=== PATIENT | female | born 1935 ===

== ENCOUNTER 2018-07-05 11:04 | Emergency (ER) | payer MEDICARE, MEDICAID ==
[2018-07-05 11:17] VITALS: TEMP 97.9
[2018-07-05] MEDS ORDERED: Sodium Chloride 0.9% 1,000 ML IV STA (11:21)
--- NOTE | 2018-07-05 11:25 | ED PDOC ---
Lower Extremity Pain/Injury Time Seen by Provider: 07/05/18 11:13 History Per: Patient Onset/Duration Of Symptoms: Other (2 weeks) Current Symptoms Are (Timing): Still Present Severity: Moderate Additional Complaint(s): Redness and swelling lower ext bilat x 2 weeks. Denies fevr. Denies chest pain or SOB Past Medical History Vital Signs: Last Vital Signs Temp 97.9 F 07/05/18 11:16 Pulse 87 07/05/18 11:16 Resp BP 142/69 07/05/18 11:16 Pulse Ox 97 07/05/18 11:16 - Medical History PMH: Asthma, HTN, Hypercholesterolemia, Hypothyroidism Denies: Chronic Kidney Disease - Family History Family History: States: Unknown Family Hx - Home Medications Home Medications: Ambulatory Orders Medication Instructions Recorded Clopidogrel [Plavix] 75 mg PO DAILY 03/23/16 Levothyroxine [Synthroid] 50 mcg PO DAILY 03/23/16 Gabapentin [Neurontin] 100 mg PO TID 10/05/17 Albuterol/Ipratropium [Duoneb 3 3 ml INH RQ6 PRN neb 10/08/17 mg/0.5 mg (3 ml) UD] amLODIPine [Norvasc] 10 mg PO DAILY tab 10/08/17 Apixaban [Eliquis] 5 mg PO BID #60 tab 10/16/17 Famotidine 20 mg PO DAILY 11/17/17 Furosemide 40 mg PO DAILY 11/17/17 Potassium Citrate [Potassium 10 meq PO DAILY 11/17/17 Citrate ER] Prednisone [Gabe] 5 mg PO DAILY 11/17/17 Sulfamethoxazole/Trimethoprim 1 tab PO BID #20 tab 07/05/18 [Bactrim DS 800 mg-160 mg] - Allergies Allergies/Adverse Reactions: Allergies Allergy/AdvReac Type Severity Reaction Status Date / Time Penicillins Allergy RASH Verified 07/05/18 11:35 Review of Systems ROS Statement: Except As Marked, All Systems Reviewed And Found Negative Constitutional: Negative for: Fever Musculoskeletal: Positive for: Leg Pain, Other (Redness and swelling lower ext bilat) Physical Exam - Reviewed Nursing Documentation Reviewed: Yes Vital Signs Reviewed: Yes - Physical Exam Appears: Positive for: Non-toxic, No Acute Distress Head Exam: Positive for: ATRAUMATIC, NORMAL INSPECTION, NORMOCEPHALIC Skin: Positive for: Normal Color, Warm, DRY Eye Exam: Positive for: EOMI, Normal appearance, PERRL ENT: Positive for: Normal ENT Inspection Neck: Positive for: Normal, Painless ROM Cardiovascular/Chest: Positive for: Regular Rate, Rhythm Respiratory: Positive for: CNT, Normal Breath Sounds Gastrointestinal/Abdominal: Positive for: Normal Exam, Soft Back: Positive for: Normal Inspection Extremity: Positive for: Swelling, Other (Erythema, circumferential to mid norris bilat). Negative for: Calf Tenderness Neurologic/Psych: Positive for: Alert, Oriented - Laboratory Results Result Diagrams: 07/05/18 11:35 07/05/18 11:35 - ECG O2 Sat by Pulse Oximetry: 97 Medical Decision Making Medical Decision Making: Erythema and warmth most likely due to cellullitis but will obtain duplex to r/o DVT Disposition - Clinical Impression Clinical Impression: Cellulitis - Patient ED Disposition Is Patient to be Admitted: No Counseled Patient/Family Regarding: Studies Performed, Diagnosis, Need For Followup, Rx Given - Disposition Referrals: [facility] [Outside] Disposition: Routine/Home Disposition Time: 14:10 Condition: FAIR Prescriptions: Sulfamethoxazole/Trimethoprim [Bactrim DS 800 mg-160 mg] 1 tab PO BID #20 tab Instructions: Cellulitis and Erysipelas (Skin Infections) Print Language: TAJIK
[2018-07-05 11:48] LABS: VENOUS BLOOD GAS PCO2 45 mmHg (40-60); VENOUS BLOOD GAS PO2 34 mm/Hg (30-55); VENOUS BLOOD PH 7.42 (7.32-7.43)
[2018-07-05 11:51] LABS: BASO % 0.7 % (0.0-2.0); EOS # 0.2 K/uL (0.0-0.7); EOS % 3.6 % (0.0-4.0); HEMOGLOBIN 11.7 g/dL (12.0-16.0); LYMPH # 1.8 K/uL (1.0-4.3); LYMPH % 28.4 % (20.0-40.0); MEAN CELL VOLUME 83.2 fl (81.0-99.0); MEAN CORPUSCULAR HEMOGLOBIN 27.4 pg (27.0-31.0); MEAN PLATELET VOLUME 7.5 fl (7.2-11.7); MONO # 0.6 K/uL (0.0-0.8); MONO % 9.5 % (0.0-10.0); NEUT # 3.8 K/uL (1.8-7.0); NEUT % 57.8 % (50.0-75.0); NRBC % 0.1 % (0.0-0.0); RBC 4.26 Mil/uL (3.80-5.20); RED CELL DISTRIBUTION WIDTH 15.1 % (11.5-14.5); WHITE BLOOD COUNT 6.5 K/uL (4.8-10.8)
[2018-07-05 12:01] LABS: ALB/GLOB RATIO 1.2 (1.0-2.1); ALBUMIN 4.3 g/dL (3.5-5.0); CALCIUM 9.6 mg/dL (8.4-10.2)
--- NOTE | 2018-07-05 13:34 | US ---
Date of service: 07/05/2018 PROCEDURE: Bilateral lower extremity venous duplex Doppler. HISTORY: Erythema and swelling COMPARISON: None available. TECHNIQUE: Bilateral common femoral, superficial femoral, popliteal and posterior tibial veins were evaluated. Flow was assessed with color Doppler, compressibility, assessment of phasic flow and augmentation response. FINDINGS: COMMON FEMORAL VEIN: Right CFV: Unremarkable. Left CFV: Unremarkable. SUPERFICIAL FEMORAL VEIN: Right SFV: Unremarkable. Left SFV: Unremarkable. POPLITEAL VEIN: Right Popliteal: Unremarkable. Left Popliteal: Unremarkable. POSTERIOR TIBIAL VEIN: Right PTV: Unremarkable. Left PTV: Unremarkable. OTHER FINDINGS: None. IMPRESSION: No sonographic evidence of deep venous thrombosis bilaterally.
[2018-07-05 16:04] VITALS: BP 123/66; PULSE 86; RESP 18; O2SAT 95
--- NOTE | 2018-07-05 20:28 | CARD ---
APPROVED REPORT Date of service: 07/05/2018 EKG Measurement Heart [id number] <Conclusion> Normal sinus rhythm Right axis deviation Possible Right ventricular hypertrophy Abnormal ECG
== END 2018-07-05 16:14 | disposition home or self-care (01) ==
LOC: H.ER 11:04
DX: L03.119 Cellulitis of unspecified part of limb (principal); J45.909 Unspecified asthma, uncomplicated; I10 Essential (primary) hypertension; Z79.01 Long term (current) use of anticoagulants; Z88.0 Allergy status to penicillin; E03.9 Hypothyroidism, unspecified; E78.00 Pure hypercholesterolemia, unspecified
CPT/HCPCS: 80053; 82803; 85025; 87040; 93005; 93970; 99285; J7030